=== PATIENT | male | born 1970 ===

== ENCOUNTER 2021-02-26 02:50 | Inpatient (IN) | payer OTHER ==
[~2021-02-26] VITALS: Ht 66 cm; Wt 68.0 kg
[2021-02-26] MEDS ORDERED: DILANTIN100 MG (03:01)
[2021-02-26] MEDS ORDERED: LEVOTHYROXINE50 MCG (14:49)
[2021-02-26] MEDS ORDERED: DIVALPROEX SOD500 MG (14:49)
[2021-02-26] MEDS ORDERED: SERTRALINE HCL50 MG (14:49)
[2021-02-26] MEDS ORDERED: RISPERIDONE1 MG (14:49)
[2021-02-26] MEDS ORDERED: LOSARTAN POTAS100 MG (14:49)
[2021-02-26] MEDS ORDERED: RESTORIL30 MG (14:49)
[2021-02-28] MEDS ORDERED: PERCOCET 5-3251 EACH PO (10:55)
[2021-02-28] MEDS ORDERED: COLACE100 MG PO (10:55)
== END 2021-02-28 16:53 | disposition home or self-care (01) | DRG 358 ==
LOC: ER 02:50 → SEC-K 07:46 → MEDI 07:46
PROVIDERS: ADMIT Surgery; ATTEND Surgery
PROC: 0J9B0ZZ Drainage of Perineum Subcutaneous Tissue and Fascia, Open Approach (ICD-10-PCS; principal; 2021-02-28 12:45)
DX: K60.3 Anal fistula (principal); I10 Essential (primary) hypertension; G40.909 Epilepsy, unspecified, not intractable, without status epilepticus; Z20.822 Contact with and (suspected) exposure to COVID-19